=== PATIENT | male | born 1970 | race Caucasian/White ===

== ENCOUNTER 2018-11-07 06:03 | Day surgery (SDC) | payer OTHER ==
[~2018-11-07] VITALS: Ht 182.9 cm; Wt 82.6 kg
[2018-11-07] MEDS ORDERED: NAPROSYN500 MG PO (06:51)
[2018-11-07] MEDS ORDERED: PRINIVIL10 MG PO (06:51)
[2018-11-07 07:00] VITALS: BP 131/77; Ht 182.9 cm; Wt 82.6 kg
[2018-11-07 07:43] LABS: BASOPHILS 0.9 % (0-2); EOSINOPHILS 4.4 % (0-7); HEMOGLOBIN 15.3 g/dL (13.5-17.5); IMMATURE GRANULOCYTES 0.1 % (0-5); LYMPHOCYTES 26.4 % (15-50); MCH 30.7 pg (26.0-34.0); MCV 90.2 fL (80.0-100.0); MEAN PLATELET VOLUME 11.3 fL (7.4-10.4); MONOCYTES 10.4 % (2-11); NEUTROPHILS 57.8 % (40-80); PLATELET COUNT 216 10x3/uL (130-400); RBC 4.99 10x6/uL (4.20-6.10); RDW 12.5 % (11.5-14.5); WBC 6.9 10x3/uL (4.8-10.8)
--- NOTE | 2018-11-07 14:30 | NUR ---
PT DISCHARGE INSTRUCTIONS REVIEWED AT THIS TIME, PT VERBALIZES UNDERSTANDING. IV REMOVED AT THIS TIME, INTACT, NO REDNESS OR SWELLING NOTED AT THIS TIME.
--- NOTE | 2018-11-07 14:48 | NUR ---
PT LEFT UNIT VIA WC AT THIS TIME. WITH ADC.
--- NOTE | 2018-11-09 18:02 | OP ---
PATIENT NAME: DARCI JOHNSON MEDICAL RECORD: [id number] :70 [facility] DATE: SURGEON: RUY CHRISTINE MD DATE OF OPERATION: 11/07/2018 PREOPERATIVE DIAGNOSIS: Right inguinal hernia, symptomatic. POSTOPERATIVE DIAGNOSIS: Right pantaloon (direct and indirect components) inguinal hernia, symptomatic. PROCEDURE: Right inguinal hernia repair with bilayered preperitoneal polypropylene mesh. SURGEON: Ruy Christine MD RN RADIATION ONCOLOGY: None. BLOOD LOSS: Minimal. ANESTHESIA: General. COMPLICATIONS: None. The risks, possible complications, and alternatives to the procedure were explained to the patient. He elects to proceed. The discussion specifically included, but was not limited to, bleeding requiring emergency reoperation; infection; intestinal injury; chronic pain; ischemic orchitis. OPERATIVE COURSE: The patient was conveyed to the operating room electively on 11/07/2018. General anesthesia was induced by the anesthesia staff. The abdomen and genitals were sterilely prepped and draped. A transverse incision was accomplished in the right lower quadrant. Sharp dissection was carried down through skin and subcutaneous tissue as well as Praveen's fascia. The external oblique aponeurosis was incised along the direction of its fibers. I then bluntly dissected down through the internal oblique and transversus abdominis muscle layers. A preperitoneal pocket was fashioned bluntly. A direct hernia was reduced in its entirety. A portion of the direct hernia sac was excised and sent to pathology. An indirect hernia was reduced in its entirety. I then cut 2 ovals out of a polypropylene mesh. The 2 ovals were sutured together, one on top of the other, with running #1 Surgidac. The mesh was placed in the preperitoneal space. After satisfactory placement of the mesh, I allowed the internal oblique and transversus abdominis muscles to come together and these were sutured together with multiple interrupted horizontal mattress #0 Surgidacs, incorporating a portion of the underlying mesh. The external oblique aponeurosis was closed with running #1 Vicryls. Praveen's fascia was approximated with interrupted 3-0 Vicryls. The subdermis was approximated with interrupted 3-0 Vicryls. The skin was approximated with a running intracuticular 4-0 Vicryl. Benzoin and Steri-Strips were applied. I then had the nurse hardware engineer perform a Valsalva maneuver from the patient while examining his right inguinal canal. There was no evidence of a persistent inguinal hernia. The patient was then extubated and conveyed to the postanesthesia care unit, where he was in stable condition. He will be dismissed back to the detention OPERATIVE REPORT [id number] DARCI JOHNSON trav with a narcotic analgesic. There is no need for a routine followup appointment with this patient unless he develops a complication related to this operative procedure. In that event, I can see him in my office or I can see him when I make rounds out of the detention twice monthly. TRANSINT:[id number] Voice Confirmation ID: [id number] DOCUMENT ID: [id number] RUY CHRISTINE MD at 1802 CC: SAWYER LARIOS THOMAS NATHAN MD, RUY MCCLELLAND MD, AZUL [id number] ORIANA MARTINEZ DICTATION DATE: 11/08/18 1359 OFFSET PRINTER: 11/08/18 1530 [facility] 11/07/18 [id number] [place] [address]
== END 2018-11-07 14:48 | disposition home or self-care (01) ==
LOC: D.OPS 06:03
PROVIDERS: Anesthesiology
DX: K40.90 Unilateral inguinal hernia, without obstruction or gangrene, not specified as recurrent (principal); Z01.812 Encounter for preprocedural laboratory examination